=== PATIENT | male | born 1960 | race Caucasian/White ===

== ENCOUNTER 2018-01-06 13:31 | Day surgery (SDC) | payer MEDICARE, MEDICAID ==
[2018-01-06] VITALS (9 sets, daily range): BP systolic 107–137; BP diastolic 66–80
[~2018-01-06] VITALS: Ht 180.3 cm; Wt 81.1 kg
[2018-01-06] MEDS ORDERED: LORazepam 0.5 MG tablet PO PRN (13:45)
[2018-01-06] MEDS ORDERED: normal saline 1000ml 1,000 ML IV SCH (13:45)
[2018-01-06] MEDS ORDERED: diphenhydrAMINE 25mg capsule PO PRN (13:45)
[2018-01-06] MEDS ORDERED: LIDOcaine/PRILOcaine 5gm cream TP ONE ×2 (13:45→14:05)
[2018-01-06] MEDS ORDERED: ATOR40TA PO (13:57)
[2018-01-06] MEDS ORDERED: HYDR-4353 PO (13:57)
[2018-01-06] MEDS ORDERED: ASPI81TA52 PO (13:57)
[2018-01-06] MEDS ORDERED: LIDOcaine 1% (10mg/ml)w/preservative injection 20ml MDV ONE (16:35)
[2018-01-06] MEDS ORDERED: midazolam 2 mg/2 ml injection ONE (16:35)
[2018-01-06] MEDS ORDERED: fentaNYL/PF 50MCG/1 ML 2ML syringe ONE (16:35)
[2018-01-06] MEDS ORDERED: iohexol 350MG/ML 100ml bottle IV ONE ×2 (16:35→17:18)
[2018-01-06] MEDS ORDERED: nitroGLYCERIN-Tridil 50MG/D5W 250 ML IV ONE (16:44)
[2018-01-06] MEDS ORDERED: verapamil 2.5 mg/ml inj IV ONE (16:44)
[2018-01-06] MEDS ORDERED: heparin 1,000unit/ml 10ml vial 10 ML ONE (16:44)
[2018-01-06] MEDS ORDERED: ticagrelor 90mg tablet ONE (17:26)
[2018-01-06] MEDS ORDERED: nitroGLYCERIN 0.4mg SUBLingual tab SL PRN (18:35)
[2018-01-06] MEDS ORDERED: ondansetron/PF 4mg/2ml inj IV PRN (18:35)
[2018-01-06] MEDS ORDERED: proCHLORperazine 10 MG/2 ml inj IV PRN (18:35)
[2018-01-06] MEDS ORDERED: OXAZEpam 15mg capsule PO PRN (18:35)
== END 2018-01-06 20:04 | disposition home or self-care (01) ==
LOC: SSTAY O 13:31
PROVIDERS: ATTEND Internal Medicine Interventional Cardiology
DX: I25.110 Atherosclerotic heart disease of native coronary artery with unstable angina pectoris (principal); E78.5 Hyperlipidemia, unspecified; F17.210 Nicotine dependence, cigarettes, uncomplicated; Z79.82 Long term (current) use of aspirin; Z79.891 Long term (current) use of opiate analgesic; Z86.73 Personal history of transient ischemic attack (TIA), and cerebral infarction without residual deficits; Z86.69 Personal history of other diseases of the nervous system and sense organs; Z87.39 Personal history of other diseases of the musculoskeletal system and connective tissue; Z79.899 Other long term (current) drug therapy
CPT/HCPCS: 92928; 93005; 93458; 99152; 99153; C1760; C1876; J1644; J2001; J2250; J3010; J7030; Q0163; Q9967; A4620; C1725; C1769; C9600; J3490